=== PATIENT | female | born 1935 | race Hispanic/Latino ===

== ENCOUNTER → 2018-08-07 | Outpatient (CLI) | payer MEDICARE ==
[~2018-08-07] MED LIST: ALEN70TA10 PO; DORZOLAMIDE OU; LEVOTHYROXIN PO; SIMV20TA6 PO; VITAMIN D PO
== END | disposition home or self-care (01) ==
LOC: SHCH 11:11
PROVIDERS: ATTEND Internal Medicine Cardiovascular Disease
DX: R06.02 Shortness of breath (principal)
CPT/HCPCS: 93306

== ENCOUNTER → 2018-08-13 | Outpatient (CLI) | payer MEDICARE ==
[~2018-08-13] VITALS: Ht 157.5 cm; Wt 65.8 kg
[~2018-08-13] MED LIST changes: +REGADENOSON 0.4 MG/5 ML PF SYG IVP SCH
== END | disposition home or self-care (01) ==
LOC: SHCH 08:06
PROVIDERS: ATTEND Internal Medicine Cardiovascular Disease
DX: R06.02 Shortness of breath (principal); R00.2 Palpitations
CPT/HCPCS: 78452; 93017; 96374; A9500 ×2; J2785